=== PATIENT | male | born 1945 | race Caucasian/White ===

== ENCOUNTER → 2018-09-27 08:24 | Outpatient (CLI) | payer MEDICARE, OTHER ==
[2014-12-24 13:37] VITALS: BMI 31.5
[~2018-09-27 08:24] MED LIST: DEXILANT60 MG PO; ELIQUIS2.5 MG PO; ICAPS AREDS1 TAB.SA; ICAPS AREDS1 TAB.SA PO; LAC-HYDRIN 5226 ML TOPICAL; LAC-HYDRIN 5226 ML TP; LIORESAL 10 MG10 MG PO; MULTI-DAY VITAM1 TAB PO; RESTORIL15 MG PO; TESTOSTERON200 MG/ML IM; VIMOVO 500-201 EACH PO; ZOCOR20 MG PO
== END | disposition home or self-care (01) ==
LOC: D.MRI 08:24
DX: M25.562 Pain in left knee (principal)

== ENCOUNTER → 2019-06-04 10:43 | Outpatient (CLI) | payer MEDICARE, OTHER ==
[2014-12-24 13:37] VITALS: BMI 31.5
== END | disposition home or self-care (01) ==
LOC: D.HCCECHO 10:43
PROVIDERS: ATTEND Internal Medicine Cardiovascular Disease
DX: R06.09 Other forms of dyspnea (principal)

== ENCOUNTER → 2020-04-09 14:37 | Outpatient (CLI) | payer MEDICARE, OTHER ==
[2014-12-24 13:37] VITALS: BMI 31.5
[~2020-04-09 14:37] MED LIST changes: +OXYCONTIN10 MG PO; +TRAVATAN Z2.5 ML EACH EYE
== END | disposition home or self-care (01) ==
LOC: D.CT 14:37
PROVIDERS: ATTEND Nurse Practitioner
DX: R06.02 Shortness of breath (principal)

== ENCOUNTER 2020-04-09 15:21 | Inpatient (IN) | payer MEDICARE, OTHER ==
[~2020-04-09] VITALS: Ht 177.8 cm; Wt 104.3 kg
--- NOTE | ~2020-04-09 | HEMODYNAMI ---
PATIENT:JOSE WALTERS MEDICAL RECORD: [id number] : 49 LOCATION:D.MS [id number] ADMISSION DATE: 04/09/20 Generatedon:04/13/202014:21 Patient name: JOSE WALTERS Patient #: [id number] SSN: : 1945 Date of study: 04/13/2020 Page: Of Hemodynamic Procedure Report Patient Data Patient Demographics Procedure consent was obtained First Name: JOSE Gender: Male Last Name: SELENA : 1945 [facility] Initial: Q Age: 74 year(s) Patient #: [id number] Race: Unknown Additional ID: [id number] Contact details Address: [address] [place] [address] [facility] State: [place] City: [place] Zip code: [address] Past Medical History Allergies Allergen Reaction Date Comments Reported Other allergy 04/10/2020 baclifin,tb skin test Other allergy 04/13/2020 baclophin, tb skin test Admission Admission Data Admission Date: 04/09/2020 Admission Time: 19:10 Room #: [id number] Height (in.): 70 BSA: 2.22 (m2) Height (cm.): 177.8 BMI: 33 (kg/m2) Weight (lbs.): 230 Weight (kg.): 104.33 Procedure Procedure Types Cath Procedure Peripheral Cath Diagnostic Procedure Miscellaneous Aspiration/Injection (Joint) Procedure Description Procedure Date Procedure Date: 04/13/2020 Procedure Start Time: 14:12 Procedure Staff Name Function Bernabe Quinonez MD Performing Physician DEANDRE PAK RT Monitor Procedure Data Cath Procedure Fluoroscopy Diagnostic fluoroscopy Total fluoroscopy Time: 0.2 time: 0.2 min min Hemodynamics Rest BSA: 2.22 (m2) O2 Consumption: Estimated: 301.92 (ml/min) O2 Consumption indexed : Estimated:136 (ml/min/m) Pre Cath Intra NCS Post Cath Procedure Log Time Note 13:19:05 SAFE-T PLUS MYELOGRAM TRAY opened to sterile field. 13:19:13 Patient Weight : 230 lbs 13:19:13 Patient Height : 70 inches 14:00:51 DEANDRE VANCE (R) sent for patient. Start room use. 14:00:52 Time tracking: Regular hours (M-F 7:00 - 5:00) 14:01:00 Patient received from Med/Surg to IR Alert and oriented. Tansferred to table in Supine position. 14:01:01 Signed procedure consent form obtained from patient. 14:01:03 Warm blankets applied, and yolie hugger turned on for patient comfort. 14:01:03 Correct patient and procedure confirmed by team. 14:01:05 - 14:01:12 H&P Date Dictated: 04/13/2020 Within 30 days and on chart.. 14:01:14 Pre-procedure instructions explained to patient. 14:01:15 Pre-op teaching completed and patient verbalized understanding. 14:01:17 Family in patients room. 14:01:39 Patient allergic to Other allergybaclophin, tb skin test 14:01:43 Is the patient allergic to Iodine/contrast media? No. 14:01:45 Is patient on blood thinner?Yes 14:01:48 ACC The patient was administered the following blood thiners within the last 24 hours: ACCLovenox 14:01:51 - 14:02:00 Right Knee was prepped with betadine and draped in sterile fashion. 14:08:16 Physician arrived 14:08:16 --------ALL STOP TIME OUT------ 14:08:25 Right knee site verified by team. 14:: Procedure started. 14:09:27 Full Disclosure recording started 14:12:02 Local anesthetic to Right Knee with Lidocaine 1% by Bernabe Quinonez MD.INITIAL ACCESS ONLY 14:12:07 CHIBA 18 X 15 needle opened to sterile field. 14:19:01 Procedure ended.(Physican Out) 14:20:40 Fluoroscopy time 00.20 minutes. 14:20:42 Dose Area Product 2 mGy/cm. 14:20:48 Post procedure instruction explained to patient.Patient verbalizes understanding. 14:20:49 Procedure and supply charges have been captured, reviewed, submitted an d are correct. 14:21:12 Patient transfered to Med/Surg with Bed. Device Usage Item Name Manufacture Quantity Catalog Hospital Part Current Minimal Lot# / Number Charge Number Stock Stock Serial# Code SAFE-T CareFusion 1 [id number] 5 PLUS MYELOGRAM TRAY CHIBA 18 [facility] 1 [id number] 5 X 15 needle Signature Audit [place] Stage Time Signature Unsigned Intra-Procedure 04/13/2020 DEANDRE PAK RT 2:21:23 PM (R) [facility] [address] [place] [address]
--- NOTE | ~2020-04-09 | HEMODYNAMI ---
PATIENT:JOSE WALTERS MEDICAL RECORD: [id number] : [birth year] [id number] ADMISSION DATE: 04/09/20 Generatedon:04/10/202017:11 Patient name: JOSE WALTERS Patient #: [id number] SSN: : Date of study: 04/10/2020 Page: Of Hemodynamic Procedure Report Patient Data Patient Demographics Procedure consent was obtained First Name: JOSE Gender: Male Last Name: SELENA : 1945 [facility] Initial: Q Age: 74 year(s) Patient #: [id number] Race: Unknown Additional ID: [id number] Contact details Address: [address] [place] [address] [facility] State: [place] City: [place] Zip code: [address] Past Medical History Allergies Allergen Reaction Date Comments Reported Other allergy 04/10/2020 baclifin,tb skin test Admission Admission Data Admission Date: 04/09/2020 Admission Time: 19:10 Room #: .[facility] Height (in.): 70 BSA: 2.22 (m2) Height (cm.): 177.8 BMI: 33 (kg/m2) Weight (lbs.): 230 Weight (kg.): 104.33 Procedure Procedure Types Cath Procedure Peripheral Cath Diagnostic Procedure Speech Lang Path Peripheral Procedures Venography Extremity Right Lower Ext. Venagram Procedure Description Procedure Date Procedure Date: 04/10/2020 Procedure Start Time: 15:26 Procedure Staff Name Function Victor Hugo Frias MD Performing Physician Rabia Woodson RT Credit Control Administrator Valentine Jolly RN Nurse Araceli CLAUDIO RN Nurse Xavi Adhikari RT Scrub Procedure Data Cath Procedure Fluoroscopy Diagnostic fluoroscopy Total fluoroscopy Time: 10 time: 10 min min Diagnostic fluoroscopy Total fluoroscopy dose: 812 dose: 812 mGy mGy Contrast Material Contrast Material Type Amount (ml) Isovue 300 130 Diagnostic catheters Device Type Used For End Catheter Placement Merit Impress KA2 5Fr 65CM catheter ([id number]) Procedure Medications Medication Administration Route Dosage Lidocaine 1% added to field 20 Heparin Flush Bag added to field 2 bags (1000units/500ml NS) Benadryl I.V. 50 mg Versed I.V. 1 mg Fentanyl I.V. 50 mcg Versed I.V. 1 mg Fentanyl I.V. 50 mcg Versed I.V. 1 mg Fentanyl I.V. 50 mcg Demerol I.V. 25 mg Vancomycin I.V.P.B 1 g Demerol I.V. 25 mg Hemodynamics Rest BSA: 2.22 (m2) O2 Consumption: Estimated: 281.02 (ml/min) O2 Consumption indexed : Estimated:126.59 (ml/min/m) Heart Rate: 100 (bpm) Snapshots Pre Cath Intra NCS Post Cath Vital Signs Time Heart Resp SPO2 etCO2 NIBP (mmHg) Rhythm Pain Sedation Rate (ipm) (%) (mmHg) Status Level (bpm) 15:12:56 100 26 98 12 140/83(103) NSR 0 (11) 10(A) , No pain 15:17:10 99 29 99 17.3 135/80(104) NSR 0 (11) 10(A) , No pain 15:21:24 93 29 99 22.6 139/83(111) NSR 0 (11) 10(A) , No pain 15:25:36 94 26 99 14.3 143/90(110) NSR 0 (11) 10(A) , No pain 15:29:50 94 24 99 20.3 139/83(111) NSR 0 (11) 9(A) , No pain 15:34:04 95 25 99 22.6 141/90(111) NSR 0 (11) 9(A) , No pain 15:38:18 97 26 99 21 142/93(114) NSR 0 (11) 9(A) , No pain 15:42:31 96 25 99 19.5 142/83(109) NSR 0 (11) 9(A) , No pain 15:46:46 94 24 99 19.5 141/84(112) NSR 0 (11) 9(A) , No pain 15:51:02 93 26 99 21.8 137/79(112) NSR 0 (11) 9(A) , No pain 15:55:16 95 26 99 18.8 141/84(110) NSR 0 (11) 9(A) , No pain 15:59:30 96 27 99 21 137/84(110) NSR 0 (11) 9(A) , No pain 16:03:41 99 25 99 25.6 135/82(108) NSR 0 (11) 9(A) , No pain 16:07:53 96 26 99 24.1 146/88(115) NSR 0 (11) 9(A) , No pain 16:12:07 96 26 99 23.3 148/87(118) NSR 0 (11) 9(A) , No pain 16:16:24 90 25 98 24.8 151/92(122) NSR 0 (11) 9(A) , No pain 16:20:39 88 25 98 25.5 157/93(130) NSR 0 (11) 9(A) , No pain 16:25:00 90 23 98 20.3 161/93(145) NSR 0 (11) 9(A) , No pain 16:29:59 91 24 96 27.8 Measuring NSR 0 (11) 9(A) , No pain 16:30:15 95 24 96 25.5 157/126(144) NSR 0 (11) 9(A) , No pain 16:34:25 100 29 95 26.3 130/111(120) NSR 0 (11) 9(A) , No pain 16:38:18 100 27 94 29.3 109/95(106) NSR 0 (11) 9(A) , No pain 16:43:17 109 29 94 20.3 Measuring NSR 0 (11) 9(A) , No pain 16:44:41 112 28 93 21.8 Time NSR 0 (11) 9(A) Exceeded , No pain 16:49:41 14.3 Measuring NSR 0 (11) 9(A) , No pain 16:51:05 90 12 Time NSR 0 (11) 9(A) Exceeded , No pain 16:52:43 94 9.7 161/99(157) NSR 0 (11) 9(A) , No pain 16:57:05 97 13.5 179/107(145) NSR 0 (11) 9(A) , No pain 17:01:31 99 1.5 163/97(127) NSR 0 (11) 9(A) , No pain 17:05:51 97 18.8 159/102(130) NSR 0 (11) 9(A) , No pain 17:09:51 9 Aborted NSR 0 (11) 9(A) , No pain Medications Time Medication Route Dose Verified Delivered Reason Notes Eff ectiveness by by 15:27:52 Lidocaine 1% added 20ml Victor Hugo Gay for local to vial Altagracia Frias anesthetic field MD FIGUEROA 15:28:04 Heparin Flush added 2 Victor Hugo Gay used for Bag to bags Altagracia Frias procedure (1000units/500ml field MD FIGUEROA NS) 15:28:21 Benadryl I.V. 50 mg Victor Hugo Grijalva Per Altagracia Jolly RN physician 15:44:49 Versed I.V. 1 mg Victor Hugo Grijalva for Altagracia Jolly RN sedation 15:45:02 Fentanyl I.V. 50 Victor Hugo Grijalva for [facility] Altagracia Jolly RN sedation 15:55:39 Versed I.V. 1 mg Victor Hugo Grijalva for Altagracia Jolly RN sedation 15:55:46 Fentanyl I.V. 50 Victor Hugo Holmody for [facility] Altagracia Jolly RN sedation 16:12:14 Versed I.V. 1 mg Victor Hugo Grijalva for Altagracia Jolly RN sedation 16:12:23 Fentanyl I.V. 50 Victor Hugo Grijalva for [facility] Altagracia Jolly RN sedation 16:33:01 Demerol I.V. 25 mg Victor Hugo Grijalva Per Altagracia Jolly RN physician 16:51:18 Vancomycin I.V.P.B 1 g Victor Hugo Grijalva Per Altagracia Jolly RN physician 16:56:23 Demerol I.V. 25 mg Victor Hugo Grijalva Per Altagracia Jolly RN physician Procedure Log Time Note 14:37:33 Patient Height : 70 inches 14:37:36 Patient Weight : 230 lbs 14:39:28 Use device set IR Diagnostic 14:40:40 BENTSON 145cm wire ([id number]) opened to sterile field. 14:40:41 Micropuncture VSI 4FR kit opened to sterile field. 14:40:42 Sheath 8fr. [place] 10cm opened to sterile field. 14:40:43 Tegaderm 4 x 4 (1626W) opened to sterile field. 14:40:44 Sterile Angiographic Pack opened to sterile field. 14:40:47 Bag Decanter (2002S) opened to sterile field. 14:52:21 Time tracking: Regular hours (M-F 7:00 - 5:00) 15:09:55 Plan of Care:Hemodynamics will remain stable., Cardiac rhythm will remain stable., Comfort level will be maintained., Respiratory function will remain adequate., Patient/ family verbilizes understanding of procedure., Procedure tolerated without complication., Recovers from procedure without complications.. 15:10:08 Patient received from Med/Surg to IR Alert and oriented. Tansferred to table in Prone position. 15:10:11 Signed procedure consent form obtained from patient. 15:10:17 H&P Date Dictated: 04/10/2020 Within 30 days and on chart.. 15:10:19 Pre-procedure instructions explained to patient. 15:10:20 Pre-op teaching completed and patient verbalized understanding. 15:10:22 Family unavailable. 15:10:25 Patient NPO since Midnight. 15:11:00 Patient allergic to Other allergybaclifin,tb skin test 15:11:05 Is the patient allergic to Iodine/contrast media? No. 15:11:13 Is patient on blood thinner?Yes 15:11:16 Patient diabetic? No. 15:11:19 - 15:11:22 ----Pre-sedation anethsthesia assessment.---- 15:11:26 Previous problem with sedation/anesthesia? No ? 15:11:28 Snore? Yes 15:11:31 Sleep apnea? Yes 15:11:33 Deviated septum? No 15:11:36 Opens mouth fully? Yes 15:11:39 Sticks out tongue? Yes 15:11:43 Airway obstruction? No ? 15:11:46 Dentures? No ? 15:11:49 - 15:11:52 ECG and BP/O2 sat monitors applied to patient. 15:11:53 Vital chart was started 15:11:55 Baseline sample Acquired. 15:11:58 Full Disclosure recording started 15:11:59 - 15:12:26 Popliteal region area was prepped with chlora-prep and draped in steril e fashion 15:12:29 - 15:12:43 2) 60-89 Mildly reduced kidney function, and other findings (as for stage 1) point to kidney disease. 15:12:49 Fire Safety Assessment: A--An alcohol-based skin anteseptic being used preoperatively., C--Open oxygen or nitrous oxide is being used. 15:13:09 A Saberr KA2 5Fr 65CM catheter ([id number]) was advanced over the wire and used for . 15:25:14 Physician arrived 15:25:14 --------ALL STOP TIME OUT------ 15:25:15 Final Timeout: patient, procedure, and site verified with staff and physician. All members of the team are in agreement. 15:26:06 Procedure started. 15:26:18 Local anesthetic to right popliteal vein with Lidocaine 1% by Victor Hugo Frias MD.INITIAL ACCESS ONLY 15:27:52 Lidocaine 1% 20ml vial added to field was administered by Victor Hugo craven MD; for local anesthetic; Verbal order read back and verified. 15:28:04 Heparin Flush Bag (1000units/500ml NS) 2 bags added to field was administered by Victor Hugo Frias MD; used for procedure; Verbal order read back and verified. 15:28:21 Benadryl 50 mg I.V. was administered by Valentine Jolly RN; Per physician ; Verbal order read back and verified. 15:44:49 Versed 1 mg I.V. was administered by Valentine Jolly RN; for sedation; Verbal order read back and verified. 15:45:02 Fentanyl 50 mcg I.V. was administered by Valentine Jolly RN; for sedation ; Verbal order read back and verified. 15:49:35 ROADRUNNER .035 145 glide wire ([id number]) opened to sterile field. 15:55:39 Versed 1 mg I.V. was administered by Valentine Jolly RN; for sedation; Verbal order read back and verified. 15:55:46 Fentanyl 50 mcg I.V. was administered by Valentine Jolly RN; for sedation ; Verbal order read back and verified. 15:55:56 Cordis 5Fr BRITE TIP 11cm sheath opened to sterile field. 15:56:04 BENTSON 145cm wire ([id number]) opened to sterile field. 16:11:52 Zelante 8Fr Angiojet catheter opened to sterile field. 16:12:11 AMPLATZ Super stiff Straight 260cm wire ([id number]) opened to sterile field. 16:12:14 Versed 1 mg I.V. was administered by Valentine Jolly RN; for sedation; Verbal order read back and verified. 16:12:23 Fentanyl 50 mcg I.V. was administered by Valentine Jolly RN; for sedation ; Verbal order read back and verified. 16:24:13 INFLATOR BasixTOUCH (GX3683) opened to sterile field. 16:30:59 Inflate balloon Inflation number: 1 A Evercross 12 x 40 x 135 ([id number]) was prepped and advanced across the Undefined1 , then inflated . 16:33:01 Demerol 25 mg I.V. was administered by Valentine Jolly RN; Per physician; Verbal order read back and verified. 16:38:35 MYNX SUPERVISOR LIVESTOCK YARD 6FR/7FR ([id number]) opened to sterile field. 16:51:18 Vancomycin 1 g I.V.P.B was administered by Valentine Jolly RN; Per physician; Verbal order read back and verified. 16:54:46 Procedure ended.(Physican Out) 16:55:23 Fluoroscopy time 10.00 minutes. 16:55:34 Fluoroscopy dose: 812 mGy 16:55:34 Flurop Dose total: 812 16:55:51 Contrast amount:Isovue 300 130ml. 16:56:23 Demerol 25 mg I.V. was administered by Valentine Jolly RN; Per physician; Verbal order read back and verified. 16:58:51 Procedure and supply charges have been captured, reviewed, submitted an d are correct. 16:58:57 Report given to Med/Surg. 17:11:44 Vital chart was stopped Intervention Summary Intervention Notes Time ActionType Lesion and Equipment Used Action# Pressure Duration Attributes 16:30:59 Inflate Undefined1 Evercross 12 x 1 0 00:00 balloon 40 x 135 ([id number]) Device Usage Item Name Manufacture Quantity Catalog Hospital Part Current Min imal Lot# / Number Charge Number Stock Stock Serial# Code BENTDAVID 145cm Cook [employer] 2 [id number] 168182 5 wire ([id number]) Micropuncture VSI VASCULAR 1 7266V 778214 358958 5 VSI 4FR kit SOLUTIONS Sheath 8fr. Terumo 1 CDR102 639485 3946010 5 [place] 10cm Tegaderm 4 x 4 3M 1 1626W 096250 600149 300873 5 (1626W) Sterile Cardinal 1 [id number] 733919 477905 5 Angiographic Health Pack Bag Decanter Microtek 1 2001S 032029 56781 991048 5 (2001S) Medical Inc. Merit Impress Merit 1 [id number] 194088 922632 5 KA2 5Fr 65CM Medical catheter (61168XV2) ROADRUNNER .035 [employer] 1 Z37564 293327 410832 691657 5 [id number] 145 glide wire (U65971) Cordis 5Fr Cardinal 1 [id number] 666422 315343 5 BRITE TIP 11cm Health sheath Zelante 8Fr [place] 1 165445-120 989238 382253 701788 5 Angiojet Scientific catheter AMPLATZ Super [place] 1 [id number] 764103 41096 453506 5 stiff Straight Scientific 260cm wire ([id number]) INFLATOR Merit 1 SQ9692 040886 438196 968658 5 Mercari ([id number]) Evercross 12 x Medtronic 1 [id number] 264119 406193 928183 5 40 x 135 ([id number]) MYNX SUPERVISOR LIVESTOCK YARD Access 1 [id number] 850263 430107 5 [id number] 6FR/7FR Closure (EZ0297) Signature Audit [place] Stage Time Signature Unsigned Intra-Procedure 04/10/2020 Rabia Woodson 5:11:40 PM RT(R) [facility] [address] [place] [address]
[~2020-04-09 15:21] MED LIST changes: -OXYCONTIN10 MG PO; -TRAVATAN Z2.5 ML EACH EYE
[2020-04-09] MEDS ORDERED: OXYCONTIN10 MG PO (15:30)
[2020-04-09 15:59] LABS: BASOPHILS 0.2 % (0-2); EOSINOPHILS 0.3 % (0-7); HEMATOCRIT 44.4 % (42.0-54.0); HEMOGLOBIN 14.7 g/dL (13.5-17.5); IMMATURE GRANULOCYTES 0.4 % (0-5); LYMPHOCYTES 9.9 % (15-50); MCH 33.3 pg (26.0-34.0); MCHC 33.1 g/dL (31.0-37.0); MCV 100.7 fL (80.0-100.0); MEAN PLATELET VOLUME 10.2 fL (7.4-10.4); MONOCYTES 11.6 % (2-11); NEUTROPHILS 77.6 % (40-80); RBC 4.41 10x6/uL (4.20-6.10); RDW 12.8 % (11.5-14.5); WBC 10.7 10x3/uL (4.8-10.8)
[2020-04-09 16:00] VITALS: BP 129/86
[2020-04-09 16:00] LABS: PLATELET COUNT 194 10x3/uL (130-400)
[2020-04-09 16:09] LABS: CALC OSMOLALITY 271 mosm/kg (275-300); CALCIUM 9.1 mg/dL (8.5-10.1); CARBON DIOXIDE 24.1 mmol/L (21.0-32.0); CHLORIDE - SERUM 94 mmol/L (98-107); CREATININE - SERUM 1.5 mg/dL (0.6-1.3); POTASSIUM - SERUM 4.3 mmol/L (3.5-5.1); SODIUM 129 mmol/L (136-145); UREA NITROGEN 27 mg/dL (7-18); eGFR NON AFRICAN AMERICAN 49 mL/min (90-120)
[2020-04-09 16:13] LABS: GLUCOSE 251 mg/dL (74-106); INR 1.37 (0.85-1.17); PROTIME 16.8 SECONDS (11.6-15.0)
[2020-04-09 16:14] LABS: APTT 42.2 SECONDS (22.8-39.4)
[2020-04-09 16:18] LABS: ALBUMIN 3.4 g/dL (3.4-5.0); ALKALINE PHOSPHATASE 130 U/L (30-120); ALT (SGPT) 25 U/L (10-68); BILIRUBIN - TOTAL 0.91 mg/dL (0.2-1.3); PROTEIN - SERUM 7.9 g/dL (6.4-8.2); TROPONIN-I < 0.017 ng/mL (0.000-0.060)
[2020-04-09 16:30] VITALS: BP 129/86
[2020-04-09 17:00] VITALS: BP 120/81
[2020-04-09 18:00] VITALS: BP 127/78
[2020-04-09 21:39] VITALS: BP 121/75; BMI 33.0
[2020-04-10] VITALS (11 sets, daily range): BP systolic 119–154; BP diastolic 67–91
--- NOTE | 2020-04-10 00:27 | NUR ---
SCD'S NOT APPLIED DUE TO DVT OF RLE, AND EXTENSIVE EP.
[2020-04-10 05:13] LABS: BILIRUBIN NEGATIVE (NEGATIVE); GLUCOSE 50 mg/dL (NEGATIVE); KETONE NEGATIVE (NEGATIVE); NITRITE NEGATIVE (NEGATIVE); UROBILINOGEN NORMAL (NORMAL)
[2020-04-10 05:14] LABS: BACTERIA FEW /hpf (NEGATIVE); EPITHELIAL CELLS 0-5 /hpf (0-5); RED CELLS - URINE 0-5 /hpf (0-5); WHITE CELLS - URINE 0-5 /hpf (NEGATIVE)
[2020-04-10 05:57] LABS: BASOPHILS 0.3 % (0-2); EOSINOPHILS 2.5 % (0-7); HEMATOCRIT 38.9 % (42.0-54.0); HEMOGLOBIN 12.7 g/dL (13.5-17.5); IMMATURE GRANULOCYTES 0.5 % (0-5); MCH 32.7 pg (26.0-34.0); MCHC 32.6 g/dL (31.0-37.0); MCV 100.3 fL (80.0-100.0); MEAN PLATELET VOLUME 10.2 fL (7.4-10.4); MONOCYTES 11.7 % (2-11); PLATELET COUNT 200 10x3/uL (130-400); RBC 3.88 10x6/uL (4.20-6.10); RDW 12.9 % (11.5-14.5)
[2020-04-10 06:50] LABS: ALBUMIN 2.8 g/dL (3.4-5.0); ALKALINE PHOSPHATASE 101 U/L (30-120); ALT (SGPT) 24 U/L (10-68); BILIRUBIN - TOTAL 0.85 mg/dL (0.2-1.3); CALCIUM 8.6 mg/dL (8.5-10.1); CHLORIDE - SERUM 100 mmol/L (98-107); POTASSIUM - SERUM 3.8 mmol/L (3.5-5.1); PROTEIN - SERUM 6.5 g/dL (6.4-8.2); SODIUM 136 mmol/L (136-145); UREA NITROGEN 23 mg/dL (7-18); eGFR NON AFRICAN AMERICAN 88 mL/min (90-120)
--- NOTE | 2020-04-10 06:50 | NUR ---
A&O RESTING IN BED WITH EYES OPEN. NO C/O PAIN. NO S/S OF ACUTE DISTRESS NOTED. BEDREST D/T DVT TO RLE. SWELLING AND REDNESS PRESENT. EXCORIATION TO GROIN AREA, SKIN PROTECTANT APPLIED. ON 2L O2, NC. IV TO RIGHT AC, NS INFUSING @ 100ML/HR. SITE PATENT WITHOUT REDNESS OR SWELLING. ON TELEMETRY 90 SR. DENIES ANY NEEDS AT THIS TIME. CALL LIGHT IN REACH. WILL CONTINUE TO MONITOR.
[2020-04-10 06:51] LABS: CALC OSMOLALITY 280 mosm/kg (275-300); CREATININE - SERUM 0.9 mg/dL (0.6-1.3); GLUCOSE 181 mg/dL (74-106)
--- NOTE | 2020-04-10 09:30 | NUR ---
PATIENT NPO D/T PROCEDURE SCHEDULED TODAY. CONSENT SIGNED AND IN CHART. CLIPPED GROIN AREA.
[2020-04-10 09:33] LABS: APTT 37.9 SECONDS (22.8-39.4); INR 1.13 (0.85-1.17); PROTIME 14.5 SECONDS (11.6-15.0)
[2020-04-10] MEDS ORDERED: TRAVATAN Z2.5 ML EACH EYE (11:53)
--- NOTE | 2020-04-10 11:57 | NUR ---
OT NOTE: HOLD UNTIL TOMMOROW SECONDARY TO ACUTE PE AND DVT CRISTIN GAMA, OTR/L
--- NOTE | 2020-04-10 15:16 | NUR ---
I have reviewed this patient and I concur with the Shift Assessment completed by the Licensed Practical Nurse today this shift.
--- NOTE | 2020-04-10 20:00 | NUR ---
AWAKE,ALERT,NO COMPLAINTS VOICED. RESP EVEN AND UNALBORED. NO DISTRESS NOTED.O2 @ 2L PER NC ON. IV TO RAC INTACT WIHTOUT REDNESS OR EDEMA STERI STRIP INTACT TO RIGHT KNEE.DRESSING TO RIGHT POSTERIOR KNEE INTACT WITH DRIED BLOOD NOTED. DENIES DISCOMFORT. CL IN REACH
[2020-04-11] VITALS: BP 112/57
[2020-04-11 04:00] VITALS: BP 129/69
--- NOTE | 2020-04-11 04:39 | NUR ---
I have reviewed this patient and I concur with the Shift Assessment completed by the Licensed Practical Nurse today this shift.
--- NOTE | 2020-04-11 07:05 | NUR ---
A&O RESTING IN BED WITH EYES OPEN. NO C/O PAIN. NO S/S OF ACUTE DISTRESS NOTED. POD #1 RIGHT VENOGRAM, DRESSING TO RIGHT POPLITEAL C/D/I. SCDS ON. BLOODY URINE. BEDREST. ON 2L O2, NC. IV TO RIGHT AC, NS INFUSING @ 100ML/HR. SITE PATENT WITHOUT REDNESS OR SWELLING. ON TELEMETRY SR 90. DENIES ANY NEEDS AT THIS TIME. CALL LIGHT IN REACH. WILL CONTINUE TO MONITOR.
[2020-04-11 07:31] LABS: BASOPHILS 0.3 % (0-2); EOSINOPHILS 3.8 % (0-7); HEMATOCRIT 35.8 % (42.0-54.0); HEMOGLOBIN 11.8 g/dL (13.5-17.5); IMMATURE GRANULOCYTES 0.3 % (0-5); MCH 33.2 pg (26.0-34.0); MCV 100.8 fL (80.0-100.0); MONOCYTES 14.5 % (2-11); NEUTROPHILS 61.1 % (40-80); PLATELET COUNT 188 10x3/uL (130-400); RBC 3.55 10x6/uL (4.20-6.10); RDW 12.8 % (11.5-14.5); WBC 7.6 10x3/uL (4.8-10.8)
[2020-04-11 07:50] LABS: ALBUMIN 2.4 g/dL (3.4-5.0); ALKALINE PHOSPHATASE 94 U/L (30-120); ALT (SGPT) 24 U/L (10-68); BILIRUBIN - TOTAL 1.16 mg/dL (0.2-1.3); CALCIUM 7.6 mg/dL (8.5-10.1); CARBON DIOXIDE 26.8 mmol/L (21.0-32.0); CHLORIDE - SERUM 104 mmol/L (98-107); GLUCOSE 169 mg/dL (74-106); MAGNESIUM - SERUM 1.8 mg/dL (1.8-2.4); POTASSIUM - SERUM 3.3 mmol/L (3.5-5.1); PROTEIN - SERUM 5.6 g/dL (6.4-8.2); SODIUM 139 mmol/L (136-145); eGFR NON AFRICAN AMERICAN 78 mL/min (90-120)
[2020-04-11 07:51] LABS: CALC OSMOLALITY 282 mosm/kg (275-300); UREA NITROGEN 16 mg/dL (7-18)
--- NOTE | 2020-04-11 08:00 | NUR ---
SLEPPING WITHOUT SIGNS OF DISTRESS.CALL LIGHT IN REACH
[2020-04-11 09:49] VITALS: BP 134/63
[2020-04-11 12:19] LABS: % SATURATION 25 % (15-55); IRON 62 ug/dl (35-150); TOTAL IRON BIND CAPACITY 247 ug/dl (260-445); UNSAT IRON BIND CAPACITY 185 ug/dl (150-375)
[2020-04-11 13:58] VITALS: BP 116/60
[2020-04-11 18:04] VITALS: BP 104/57
--- NOTE | 2020-04-11 19:10 | NUR ---
WEARING CPAP WHEN ENTERING THE ROOM. PATIENT ALERT AND ORIENTED. ASSESSMENT COMPLETE PER ORDER. PATIENT HAS RIGHT AC IV THAT IS PATENT AND INFUSING NS PER ORDER. PATIENT HAS INCENTIVE SPIROMETER AT BEDSIDE PER ORDER. PATIENT PROVIDES DEMONSTRATION AND DOES SO CORRECTLY. DENIES PAIN AT THIS TIME. ASSISTED PATIENT WITH BED HANSEN. HAD LARGE BOWEL MOVEMENT. PROVIDED WITH GERMEX AND TISSUES PER REQUEST. K PAD IN PLACE PER ORDER. DENIES FURTHER NEEDS AT THIS TIME. CPOC.
[2020-04-11 20:58] VITALS: BP 113/56
[2020-04-12 00:44] VITALS: BP 124/54
[2020-04-12 04:12] VITALS: BP 127/63
--- NOTE | 2020-04-12 06:18 | NUR ---
WAITING FOR VANC TROUGH RESULTS BEFORE ADMINISTRATION
[2020-04-12 06:50] LABS: BASOPHILS 0.3 % (0-2); EOSINOPHILS 6.1 % (0-7); HEMOGLOBIN 11.1 g/dL (13.5-17.5); IMMATURE GRANULOCYTES 0.7 % (0-5); LYMPHOCYTES 28.8 % (15-50); MCH 32.6 pg (26.0-34.0); MCHC 32.6 g/dL (31.0-37.0); MEAN PLATELET VOLUME 9.9 fL (7.4-10.4); MONOCYTES 10.1 % (2-11); PLATELET COUNT 196 10x3/uL (130-400); RDW 12.8 % (11.5-14.5); WBC 5.7 10x3/uL (4.8-10.8)
--- NOTE | 2020-04-12 07:10 | NUR ---
RECEIVED REPORT, ASSUMED CARE, A&O, KPAD TO RLE, 2+ PITTING EDEMA RLE, CALL LIGHT IN REACH, URINAL AT BEDSIDE, DENIES NEEDS, BREATHING SHALLOW, WILL CONTINUE POC
[2020-04-12 07:11] LABS: ALBUMIN 2.2 g/dL (3.4-5.0); ALKALINE PHOSPHATASE 109 U/L (30-120); ALT (SGPT) 24 U/L (10-68); BILIRUBIN - TOTAL 0.44 mg/dL (0.2-1.3); CALC OSMOLALITY 279 mosm/kg (275-300); CALCIUM 7.6 mg/dL (8.5-10.1); CHLORIDE - SERUM 105 mmol/L (98-107); GLUCOSE 166 mg/dL (74-106); MAGNESIUM - SERUM 1.9 mg/dL (1.8-2.4); POTASSIUM - SERUM 3.2 mmol/L (3.5-5.1); PROTEIN - SERUM 5.6 g/dL (6.4-8.2); SODIUM 138 mmol/L (136-145); UREA NITROGEN 12 mg/dL (7-18); VANCOMYCIN - TROUGH 9.2 ug/mL (10.0-20.0); eGFR NON AFRICAN AMERICAN 78 mL/min (90-120)
[2020-04-12 08:43] VITALS: BP 99/67
[2020-04-12 13:17] VITALS: BP 127/65
[2020-04-12 18:52] VITALS: BP 140/71
--- NOTE | 2020-04-12 19:54 | NUR ---
I have reviewed this patient and I concur with the Shift Assessment completed by the Licensed Practical Nurse today this shift.
[2020-04-13 03:55] VITALS: BP 124/75
--- NOTE | 2020-04-13 04:00 | NUR ---
I have reviewed this patient and I concur with the Shift Assessment completed by the Licensed Practical Nurse today this shift.
[2020-04-13 06:02] LABS: BASOPHILS 0.3 % (0-2); EOSINOPHILS 9.7 % (0-7); HEMOGLOBIN 11.5 g/dL (13.5-17.5); IMMATURE GRANULOCYTES 0.8 % (0-5); LYMPHOCYTES 26.1 % (15-50); MCHC 32.9 g/dL (31.0-37.0); MCV 100.3 fL (80.0-100.0); MEAN PLATELET VOLUME 9.6 fL (7.4-10.4); NEUTROPHILS 53.1 % (40-80); PLATELET COUNT 213 10x3/uL (130-400); RBC 3.49 10x6/uL (4.20-6.10); RDW 12.9 % (11.5-14.5); WBC 5.9 10x3/uL (4.8-10.8)
[2020-04-13 06:44] LABS: ALBUMIN 2.4 g/dL (3.4-5.0); ALKALINE PHOSPHATASE 116 U/L (30-120); BILIRUBIN - TOTAL 0.38 mg/dL (0.2-1.3); CALC OSMOLALITY 284 mosm/kg (275-300); CALCIUM 8.3 mg/dL (8.5-10.1); CHLORIDE - SERUM 107 mmol/L (98-107); CREATININE - SERUM 0.9 mg/dL (0.6-1.3); GLUCOSE 162 mg/dL (74-106); MAGNESIUM - SERUM 2.1 mg/dL (1.8-2.4); POTASSIUM - SERUM 3.5 mmol/L (3.5-5.1); PROTEIN - SERUM 5.8 g/dL (6.4-8.2); SODIUM 141 mmol/L (136-145); UREA NITROGEN 12 mg/dL (7-18); eGFR NON AFRICAN AMERICAN 88 mL/min (90-120)
[2020-04-13 06:45] LABS: ALT (SGPT) 33 U/L (10-68)
--- NOTE | 2020-04-13 07:39 | NUR ---
RECEIVED REPORT, ASSUMED CARE, A&O, DENIES NEEDS, KPAD ON RIGHT KNEE, 2+ PITTING EDEMA NOTED TO RLE, CALL LIGHT IN REACH, BED LOWEST POSITTION, BANDAGE CDI TO BACK OF RIGHT KNEE, WILL CONTINUE POC
[2020-04-13 08:56] LABS: ERYTHROCYTE SEDIMENTATION RATE 35 mm/hr (0-20)
[2020-04-13 09:10] VITALS: BP 125/72
[2020-04-13 11:54] VITALS: BP 136/76
--- NOTE | 2020-04-13 14:33 | NUR ---
RETURNED FROM SURG. HAD LOCAL NO GENERAL ANESTHESIA. STERI STRIPS IN PLACE. PAIM LEVEL 12/12. CALL LIGHT IN REACH
[2020-04-13 16:07] VITALS: Ht 177.8 cm; Wt 104.3 kg
[2020-04-13 16:22] VITALS: BP 125/73
[2020-04-13 16:25] LABS: PROTEIN - BODY FLUID 3.4 G/DL
--- NOTE | 2020-04-13 16:35 | MORECARE ---
CASE MANAGEMENT DISCHARGE SUMMARY PATIENT: JOSE WALTERS UNIT: [id number] ADM DATE: 04/09/20 AGE: 74 : [birth year] SEX: M ROOM/BED: D.2232 AUTHOR: SAMDOC PHYSICIAN: REFERRING PHYSICIAN: DAYANA ZAIDI MD DATE OF SERVICE: 04/13/20 Discharge Plan Patient Name: JOSE WALTERS Facility: [facility]:[place] : 1945 Planned Disposition: Anticipated Discharge Date: Discharge Date: Expected LOS: Initial Reviewer: [email or web address] Initial Review Date: 04/13/2020 Generated: 04/13/20 5:35 pm Comments DCP- Discharge Planning Updated by [email or web address]: Pat Serna on 04/13/20 3:[address] Patient Name: JOSE WALTERS Admission Status: ER Accout number: [id number] Admission Date: 04-09-2020 : 1945 Admission Diagnosis: Attending: REINA Current LOS: 4 Anticipated DC Date: Planned Disposition: Primary Insurance: MEDICARE A & B Discharge Planning Comments: CM met with patient at bedside after explaining CM role and obtaining verbal consent. CM discussed availability / needs of home health, REHAB and medical equipment. PATIENT DENIES ANY DISCHARGE NEEDS AT THIS TIME. HAS BEEN GOING TO OUTPATIENT PT AT [facility]. IMM SIGNED AND THIAGO SIGNED FOR [facility] AND HH IF NEEDED. CM TO FOLLOW NEEDED. Sewer Pipe Layer: Pat Serna DCPIA - Discharge Planning Initial Assessment Updated by [email or web address]: Pat Serna on 04/13/20 4:30 pm * Is the patient Alert and Oriented? Yes * PCP [facility] * Pharmacy [facility] * Preadmission Environment Home with Family * Other Equipment CPAP, WALKER * Community resources currently utilized None * Can the patient safely return to the preadmission environment? Yes * Has this patient been hospitalized within the prior 30 days at any hospital? No Coverage Notice Reviewer: [email or web address] - Pat Serna Notice Issued Date-Time: 04/13/2020 16:31 Notice Type: IM Discharge Notice Notice Delivered To: Relationship to Patient: Study Abroad Advisor Name: Delivery Method: - Karyn Days: Prior Verbal Notification: Recipient Understood Notice: Recipient Signature: Med Rec Note Co-signed by Attending: Coverage Notice Comment: Reviewer: [email or web address] Luis Manuel Pattrupti Serna Notice Issued Date-Time: 04/13/2020 16:31 Notice Type: Patient Choice Letter Notice Delivered To: Patient Relationship to Patient: Study Abroad Advisor Name: Delivery Method: HAND - Hand Delivered Karyn Days: Prior Verbal Notification: Recipient Understood Notice: Yes Recipient Signature: Yes Med Rec Note Co-signed by Attending: Coverage Notice Comment: DEIRDRE SANCHEZ OF CARE IV OR [facility] IF NEEDED. Patient Name: JOSE WALTERS Page [id number] at 1635 All edits/amendments must be made on the electronic document DICTATION DATE: 04/13/20 1635 CORK INSULATION INSTALLER: FRANCOIS 04/13/20 1635 RPT#: [id number] DC DATE: STATUS: ADM IN [facility] [address] [place] [address] END OF REPORT
[2020-04-13 18:11] LABS: MACROPHAGES BF 8 %; NEUT - BF 85 %
--- NOTE | 2020-04-13 18:35 | NUR ---
I have reviewed this patient and I concur with the Shift Assessment completed by the Licensed Practical Nurse today this shift.
[2020-04-13 20:00] VITALS: BP 110/71
[2020-04-14] VITALS: BP 127/71
[2020-04-14 04:00] VITALS: BP 125/70
[2020-04-14 04:54] LABS: BASOPHILS 0.5 % (0-2); EOSINOPHILS 9.6 % (0-7); HEMATOCRIT 35.6 % (42.0-54.0); HEMOGLOBIN 11.6 g/dL (13.5-17.5); LYMPHOCYTES 23.5 % (15-50); MCH 32.6 pg (26.0-34.0); MCHC 32.6 g/dL (31.0-37.0); MEAN PLATELET VOLUME 9.6 fL (7.4-10.4); MONOCYTES 8.6 % (2-11); NEUTROPHILS 56.8 % (40-80); PLATELET COUNT 250 10x3/uL (130-400); RBC 3.56 10x6/uL (4.20-6.10); RDW 12.7 % (11.5-14.5); WBC 6.2 10x3/uL (4.8-10.8)
[2020-04-14 05:11] LABS: ALBUMIN 2.3 g/dL (3.4-5.0); ALKALINE PHOSPHATASE 118 U/L (30-120); ALT (SGPT) 31 U/L (10-68); BILIRUBIN - TOTAL 0.38 mg/dL (0.2-1.3); CALC OSMOLALITY 275 mosm/kg (275-300); CALCIUM 8.1 mg/dL (8.5-10.1); CARBON DIOXIDE 28.6 mmol/L (21.0-32.0); CHLORIDE - SERUM 103 mmol/L (98-107); GLUCOSE 151 mg/dL (74-106); MAGNESIUM - SERUM 1.7 mg/dL (1.8-2.4); POTASSIUM - SERUM 3.5 mmol/L (3.5-5.1); PROTEIN - SERUM 5.9 g/dL (6.4-8.2); SODIUM 137 mmol/L (136-145); UREA NITROGEN 11 mg/dL (7-18); eGFR NON AFRICAN AMERICAN 78 mL/min (90-120)
--- NOTE | 2020-04-14 07:43 | NUR ---
ALERT AND ORIENTED. LUNGS CLEAR BILATERALLY. HEART SOUNDS S1 AND S2 HEARD IN ALL GREGG. BOWEL SOUNDS ACTIVE X 4. IV TO RIGHT AC PATENT WITHOUT REDNESS. DENIES NEEDS. BED LOW. CALL LIGHT AND PERSONAL ITEMS IN REACH. WILL CONTINUE TO MONITOR.
[2020-04-14 09:17] VITALS: BP 131/74
[2020-04-14 13:11] LABS: ACLA - IGG AB <9 GPL U/mL (0-14); ACLA - IGM AB <9 MPL U/mL (0-12)
[2020-04-14 14:34] VITALS: BP 119/70
[2020-04-14 17:56] VITALS: BP 118/64
[2020-04-14 20:00] VITALS: BP 138/78
--- NOTE | 2020-04-15 03:15 | NUR ---
ENTERED ROOM IN RESPONSE TO CL. PT SUPINE IN BED, HOME CPAP IN USE. REPORTS PAIN OF 6/10 TO RLE. WATER ADDED TO KPAD. NO FURTHER NEEDS VOICED, CTM.
[2020-04-15 04:00] VITALS: BP 122/77
--- NOTE | 2020-04-15 05:35 | NUR ---
I have reviewed this patient and I concur with the Shift Assessment completed by the Licensed Practical Nurse today this shift.
[2020-04-15 05:53] LABS: BASOPHILS 0.4 % (0-2); EOSINOPHILS 7.8 % (0-7); HEMATOCRIT 34.5 % (42.0-54.0); HEMOGLOBIN 11.4 g/dL (13.5-17.5); IMMATURE GRANULOCYTES 1.7 % (0-5); LYMPHOCYTES 27.2 % (15-50); MCH 33.1 pg (26.0-34.0); MCV 100.3 fL (80.0-100.0); MEAN PLATELET VOLUME 9.8 fL (7.4-10.4); MONOCYTES 9.3 % (2-11); NEUTROPHILS 53.6 % (40-80); PLATELET COUNT 267 10x3/uL (130-400); RBC 3.44 10x6/uL (4.20-6.10); WBC 7.1 10x3/uL (4.8-10.8)
[2020-04-15 06:37] LABS: CALC OSMOLALITY 285 mosm/kg (275-300); CALCIUM 8.4 mg/dL (8.5-10.1); CARBON DIOXIDE 26.2 mmol/L (21.0-32.0); CHLORIDE - SERUM 105 mmol/L (98-107); GLUCOSE 155 mg/dL (74-106); POTASSIUM - SERUM 3.9 mmol/L (3.5-5.1); SODIUM 142 mmol/L (136-145); UREA NITROGEN 12 mg/dL (7-18); eGFR NON AFRICAN AMERICAN 78 mL/min (90-120)
--- NOTE | 2020-04-15 08:38 | NUR ---
GAVE PT MEDS WITHOUT DIFFICULTY, PT DENIES NEEDS, GAVE PT PERCOCET FOR KNEE PAIN, RATES PAIN 4/10, O2 AT 2L IN USE, URINAL AT BEDSIDE, RIGHT LEG RED AND SWOLLEN, STERI STRIPS SECURE, NO DRAINAGE NOTED, K PAD IN USE, SR UP X2, CALL LIGHT IN REACH, WILL MONITOR, BED LOW AND LOCKED
[2020-04-15 09:01] VITALS: BP 126/69
--- NOTE | 2020-04-15 11:14 | NUR ---
Rehab Prescreening Consult recieved and the chart has been reviewed. He is a good ARU candidate when he is medically stable and able to participate in the 3 hours of therapy every day 5 days a week. Discussed in the IDT meeting. Jannette Fernando RN Clinical Liaison, Rehab
--- NOTE | 2020-04-15 13:09 | NUR ---
GAVE PT PERCOCET FOR PAIN, RATES PAIN 4, PT JUST FINISHED WITH PT, PT STATES IT WAS EASIER AFTER PAIN MEDS,
[2020-04-15 13:36] VITALS: BP 143/74
[2020-04-15 18:41] VITALS: BP 136/72
[2020-04-15 22:20] VITALS: BP 158/87
--- NOTE | 2020-04-15 23:00 | NUR ---
A&0 X 4. PLACED ON BEDPAN. STOOL MORE SOLID THAN BM THE PREVIOUS NIGHT, SOFT. NO FURTHER NEEDS VOICED, CTM.
[2020-04-16 03:08] LABS: PROTEIN S - FREE 141 % (57-157); PROTEIN S - TOTAL 122 % (60-150)
--- NOTE | 2020-04-16 03:55 | NUR ---
I have reviewed this patient and I concur with the Shift Assessment completed by the Licensed Practical Nurse today this shift.
[2020-04-16 06:11] LABS: PROTEIN C - ANTIGEN 84 % (60-150); PROTEIN C - FUNCTIONAL 89 % (73-180)
[2020-04-16 08:00] VITALS: BP 135/75
[2020-04-16 08:03] LABS: ANION GAP 11.6 mmol/L (8-16); CALCIUM 8.9 mg/dL (8.5-10.1); CARBON DIOXIDE 27.2 mmol/L (21.0-32.0); CREATININE - SERUM 1.1 mg/dL (0.6-1.3); POTASSIUM - SERUM 3.8 mmol/L (3.5-5.1); VANCOMYCIN - TROUGH 19.1 ug/mL (10.0-20.0)
[2020-04-16 08:04] LABS: BASOPHILS 0.5 % (0-2); EOSINOPHILS 5.3 % (0-7); HEMATOCRIT 36.8 % (42.0-54.0); HEMOGLOBIN 12.1 g/dL (13.5-17.5); IMMATURE GRANULOCYTES 2.3 % (0-5); LYMPHOCYTES 37.1 % (15-50); MCH 33.3 pg (26.0-34.0); MCHC 32.9 g/dL (31.0-37.0); MCV 101.4 fL (80.0-100.0); MEAN PLATELET VOLUME 9.5 fL (7.4-10.4); MONOCYTES 7.1 % (2-11); NEUTROPHILS 47.7 % (40-80); PLATELET COUNT 317 10x3/uL (130-400); RBC 3.63 10x6/uL (4.20-6.10); WBC 8.4 10x3/uL (4.8-10.8)
[2020-04-16 11:11] LABS: PROTEIN S - FREE 127 % (57-157); PROTEIN S - FUNCTIONAL 113 % (63-140); PROTEIN S - TOTAL 114 % (60-150)
[2020-04-16 12:00] VITALS: BP 105/67
--- NOTE | 2020-04-16 12:26 | MORECARE ---
CASE MANAGEMENT DISCHARGE SUMMARY PATIENT: JOSE WALTERS UNIT: [id number] ADM DATE: 04/09/20 AGE: 74 : 47 SEX: M ROOM/BED: D.2232 AUTHOR: SAM,DOC PHYSICIAN: REFERRING PHYSICIAN: DAYANA ZAIDI MD DATE OF SERVICE: 04/16/20 Discharge Plan Patient Name: JOSE WALTERS Facility: [facility]:[place] : 1945 Planned Disposition: Anticipated Discharge Date: Discharge Date: Expected LOS: Initial Reviewer: [id number] Initial Review Date: 04/13/2020 Generated: 04/16/20 1:26 pm Comments DCP- Discharge Planning Updated by [email or web address]: Pat Serna on 04/16/20 11:[address] Patient Name: JOSE WALTERS Admission Status: ER Accout number: [id number] Admission Date: 04-09-2020 : 1945 Admission Diagnosis:ACUTE EMBOLISM AND THROMBOSIS OF RIGHT FEMORAL VEIN Attending: REINA Current LOS: 7 Anticipated DC Date: Planned Disposition: Primary Insurance: MEDICARE A & B Discharge Planning Comments: SPOKE WITH PATIENT TODAY, HE WOULD BENEFIT FROM [facility]. THIAGO AND IMM SIGNED. ISABELLA ORELLANA WITH [facility] NOTIFIED. CM TO FOLLOW NEEDED. Cheese Specialist: Pat Serna DCP- Discharge Planning Updated by [email or web address]: Pat Serna on 04/13/20 3:[address] Patient Name: JOSE WALTERS Admission Status: ER Accout number: [id number] Admission Date: 04-09-2020 : 1945 Admission Diagnosis: Attending: REINA Current LOS: 4 Anticipated DC Date: Planned Disposition: Primary Insurance: MEDICARE A & B Discharge Planning Comments: CM met with patient at bedside after explaining CM role and obtaining verbal consent. CM discussed availability / needs of home health, REHAB and medical equipment. PATIENT DENIES ANY DISCHARGE NEEDS AT THIS TIME. HAS BEEN GOING TO OUTPATIENT PT AT [facility]. IMM SIGNED AND THIAGO SIGNED FOR [facility] AND HH IF NEEDED. CM TO FOLLOW NEEDED. Cheese Specialist: Pat Serna DCPIA - Discharge Planning Initial Assessment Updated by [email or web address]: Pat Serna on 04/13/20 4:30 pm * Is the patient Alert and Oriented? Yes * PCP ISAEL * Pharmacy [facility] * Preadmission Environment Home with Family * Other Equipment CPAP, WALKER * Community resources currently utilized None * Can the patient safely return to the preadmission environment? Yes * Has this patient been hospitalized within the prior 30 days at any hospital? No Coverage Notice Reviewer: KATHERYN Serna Notice Issued Date-Time: 04/13/2020 16:31 Notice Type: IM Discharge Notice Notice Delivered To: Relationship to Patient: Dinkey Press Operator Name: Delivery Method: - Karyn Days: Prior Verbal Notification: Recipient Understood Notice: Recipient Signature: Med Rec Note Co-signed by Attending: Coverage Notice Comment: Reviewer: KATHERYN Serna Notice Issued Date-Time: 04/13/2020 16:31 Notice Type: Patient Choice Letter Notice Delivered To: Patient Relationship to Patient: Dinkey Press Operator Name: Delivery Method: HAND - Hand Delivered Karyn Days: Prior Verbal Notification: Recipient Understood Notice: Yes Recipient Signature: Yes Med Rec Note Co-signed by Attending: Coverage Notice Comment: GINI JONES [facility] IF NEEDED. Reviewer: KATHERYN Serna Notice Issued Date-Time: 04/16/2020 12:22 Notice Type: IM Discharge Notice Notice Delivered To: Relationship to Patient: Dinkey Press Operator Name: Delivery Method: HAND - Hand Delivered Karyn Days: Prior Verbal Notification: Recipient Understood Notice: Yes Recipient Signature: Yes Med Rec Note Co-signed by Attending: Coverage Notice Comment: Reviewer: KATHERYN Serna Notice Issued Date-Time: 04/16/2020 12:22 Notice Type: Patient Choice Letter Notice Delivered To: Relationship to Patient: Dinkey Press Operator Name: Delivery Method: - Karyn Days: Prior Verbal Notification: Recipient Understood Notice: Recipient Signature: Med Rec Note Co-signed by Attending: Coverage Notice Comment: [facility] Last DP export: 04/13/20 3:35 p Patient Name: JOSE WALTERS Page [id number] at 1226 All edits/amendments must be made on the electronic document DICTATION DATE: 04/16/20 1226 CULINARY ARTIST: FRANCOIS 04/16/20 1226 RPT#: [id number] DC DATE: STATUS: ADM IN [facility] [address] [facility] [place] [address] END OF REPORT
--- NOTE | 2020-04-16 14:13 | NUR ---
Rehab Note- Visited with the patient and his and discussed inpatient acute rehab and provided information. They are in agreeance with [facility] Acute Inpatient Rehab at this time. Thank you for this referral! Brittnee Flower RN Clinical Liaison, [facility] Rehab
--- NOTE | 2020-04-16 14:55 | NUR ---
NUTRITION F/U CHART REVIEWED. PT TOLERATING AHA DIET WITH GOOD PO INTAKE RECENT MEALS. WILL CONTINUE TO PROVIDE DIET, MONITOR PT PROGRESS. RD FOLLOWING
[2020-04-16 15:12] LABS: FACTOR II DNA ANALYSIS Negative (())
[2020-04-16 15:32] VITALS: BP 108/65
[2020-04-16] MEDS ORDERED: Zosyn 3.375 GM/D5W 5 IV (16:00)
[2020-04-16] MEDS ORDERED: Vancomycin 1.25 GM/N IV (16:00)
[2020-04-16] MEDS ORDERED: XOPENEX 1.1.25 MG/3 UPD (16:00)
--- NOTE | 2020-04-16 16:16 | NUR ---
OT NOTE: PT UP TO EOB WITH MIN ASSIST; ABLE TO PERFORM EXS WHILE SITTING UP ON EOB ; ABLE TO PERFORM IN ROOM AMBULATION WITH RW AND MIN ASSIST..NO 02 DURING TMT AND PT SATS REMAINED AT 94-96%...ABLE TO PERFORM TOILET TRANSFER WITH MIN ASSIST. CONT TO RECOMMEND IP REHAB. CRISTIN GAMA, OTR/L [phone]
[2020-04-17 08:13] LABS: HEXAGONAL PHASE PHOS 19 sec (0-11); LUPUS - INTERPRETATION Comment: (()); LUPUS - THROMBIN TIME 24.9 sec (0.0-23.0); LUPUS - dRVVT 77.4 sec (0.0-47.0); LUPUS - dRVVT CONFIRMATION 1.2 ratio (0.8-1.2); PTT-LA 73.9 sec (0.0-51.9); PTT-LA MIX 65.8 sec (0.0-48.9)
--- NOTE | 2020-04-17 10:06 | MORECARE ---
CASE MANAGEMENT DISCHARGE SUMMARY PATIENT: JOSE WALTERS UNIT: [id number] ADM DATE: 04/09/20 AGE: 74 : 47 SEX: M ROOM/BED: D.2232 AUTHOR: SAM,DOC PHYSICIAN: REFERRING PHYSICIAN: DAYANA ZAIDI MD DATE OF SERVICE: 04/17/20 Discharge Plan Patient Name: JOSE WALTERS Facility: [facility]:[place] : 1945 Planned Disposition: Anticipated Discharge Date: Discharge Date: 04/16/2020 Expected LOS: Initial Reviewer: [email or web address] Initial Review Date: 04/13/2020 Generated: 04/17/20 11:06 am DCP- Discharge Planning Updated by [id number]: Pat Serna on 04/16/20 11:[address] Patient Name: JOSE WALTERS Admission Status: ER Accout number: [id number] Admission Date: 04-09-2020 : 1945 Admission Diagnosis:ACUTE EMBOLISM AND THROMBOSIS OF RIGHT FEMORAL VEIN Attending: REINA Current LOS: 7 Anticipated DC Date: Planned Disposition: Primary Insurance: MEDICARE A & B Discharge Planning Comments: SPOKE WITH PATIENT TODAY, HE WOULD BENEFIT FROM COUNTS INCLUDE 234 BEDS AT THE [facility]. THIAGO AND IMM SIGNED. ISABELLA ORELLANA WITH COUNTS INCLUDE 234 BEDS AT THE [facility] NOTIFIED. CM TO FOLLOW NEEDED. Towing Pilot: Pat Serna DCP- Discharge Planning Updated by [id number]: Pat Serna on 04/13/20 3:[address] Patient Name: JOSE WALTERS Admission Status: ER Accout number: [id number] Admission Date: 04-09-2020 : 1945 Admission Diagnosis: Attending: REINA Current LOS: 4 Anticipated DC Date: Planned Disposition: Primary Insurance: MEDICARE A & B Discharge Planning Comments: CM met with patient at bedside after explaining CM role and obtaining verbal consent. CM discussed availability / needs of home health, REHAB and medical equipment. PATIENT DENIES ANY DISCHARGE NEEDS AT THIS TIME. HAS BEEN GOING TO OUTPATIENT PT AT [facility]. IMM SIGNED AND THIAGO SIGNED FOR [facility] AND HH IF NEEDED. CM TO FOLLOW NEEDED. Towing Pilot: Pat Serna DCPIA - Discharge Planning Initial Assessment Updated by [email or web address]: Pat Serna on 04/13/20 4:30 pm * Is the patient Alert and Oriented? Yes * PCP ISAEL * Pharmacy [facility] * Preadmission Environment Home with Family * Other Equipment CPAP, WALKER * Community resources currently utilized None * Can the patient safely return to the preadmission environment? Yes * Has this patient been hospitalized within the prior 30 days at any hospital? No Coverage Notice Reviewer: KATHERYN Serna Notice Issued Date-Time: 04/13/2020 16:31 Notice Type: IM Discharge Notice Notice Delivered To: Relationship to Patient: Gold Charmer Name: Delivery Method: - Karyn Days: Prior Verbal Notification: Recipient Understood Notice: Recipient Signature: Med Rec Note Co-signed by Attending: Coverage Notice Comment: Reviewer: KATHERYN Serna Notice Issued Date-Time: 04/13/2020 16:31 Notice Type: Patient Choice Letter Notice Delivered To: Patient Relationship to Patient: Gold Charmer Name: Delivery Method: HAND - Hand Delivered Karyn Days: Prior Verbal Notification: Recipient Understood Notice: Yes Recipient Signature: Yes Med Rec Note Co-signed by Attending: Coverage Notice Comment: DEIRDRE SANCHEZ OF C[facility] OR [facility] IF NEEDED. Reviewer: KATHERYN Serna Notice Issued Date-Time: 04/16/2020 12:22 Notice Type: IM Discharge Notice Notice Delivered To: Relationship to Patient: Gold Charmer Name: Delivery Method: HAND - Hand Delivered Karyn Days: Prior Verbal Notification: Recipient Understood Notice: Yes Recipient Signature: Yes Med Rec Note Co-signed by Attending: Coverage Notice Comment: Reviewer: KATHERYN Serna Notice Issued Date-Time: 04/16/2020 12:22 Notice Type: Patient Choice Letter Notice Delivered To: Relationship to Patient: Gold Charmer Name: Delivery Method: - Karyn Days: Prior Verbal Notification: Recipient Understood Notice: Recipient Signature: Med Rec Note Co-signed by Attending: Coverage Notice Comment: [facility] Last DP export: 04/16/20 11:26 a Patient Name: JOSE WALTERS Page [phone] at 1006 All edits/amendments must be made on the electronic document DICTATION DATE: 04/17/20 1006 RELAY WORKER: FRANCOIS 04/17/20 1006 RPT#: [id number] DC DATE:04/16/20 STATUS: DIS IN [facility] [address] [place] [address] END OF REPORT
== END 2020-04-16 18:50 | DRG 270 ==
LOC: D.ER 15:21 → D.MS 19:10
PROVIDERS: Emergency Medicine; Internal Medicine Hematology & Oncology; Orthopaedic Surgery; Radiology Diagnostic Radiology; ADMIT Family Medicine; ATTEND Family Medicine
PROC: 047K3ZZ Dilation of Right Femoral Artery, Percutaneous Approach (ICD-10-PCS; 2020-04-10)
PROC: 3E03317 Introduction of Other Thrombolytic into Peripheral Vein, Percutaneous Approach (ICD-10-PCS; 2020-04-10)
PROC: 04CK3ZZ Extirpation of Matter from Right Femoral Artery, Percutaneous Approach (ICD-10-PCS; principal; 2020-04-10 14:50)
DX: I82.421 Acute embolism and thrombosis of right iliac vein (principal); I26.99 Other pulmonary embolism without acute cor pulmonale; E87.1 Hypo-osmolality and hyponatremia; N17.9 Acute kidney failure, unspecified; I50.22 Chronic systolic (congestive) heart failure; D75.89 Other specified diseases of blood and blood-forming organs; E78.5 Hyperlipidemia, unspecified; K21.9 Gastro-esophageal reflux disease without esophagitis; E03.9 Hypothyroidism, unspecified; G47.00 Insomnia, unspecified; I11.0 Hypertensive heart disease with heart failure; R00.0 Tachycardia, unspecified; N40.0 Benign prostatic hyperplasia without lower urinary tract symptoms; J44.9 Chronic obstructive pulmonary disease, unspecified

== ENCOUNTER 2020-04-16 19:00 | Inpatient (IN) | payer MEDICARE, OTHER ==
[~2020-04-16] VITALS: Ht 177.8 cm; Wt 104.3 kg
[~2020-04-16 19:00] MED LIST changes: +OXYCONTIN10 MG PO; +TRAVATAN Z2.5 ML EACH EYE; +Vancomycin 1.25 GM/N IV; +XOPENEX 1.1.25 MG/3 UPD; +Zosyn 3.375 GM/D5W 5 IV
[2020-04-17 02:27] VITALS: BP 133/96; BMI 33.0
--- NOTE | 2020-04-17 05:22 | NUR ---
PT RAC SL INFILTRATED, REMOVED TIP INTACT, NEW SL IN LFA, PATENT DRS C/D/I
[2020-04-17 06:58] LABS: BASOPHILS 0.4 % (0-2); EOSINOPHILS 5.5 % (0-7); HEMATOCRIT 37.3 % (42.0-54.0); HEMOGLOBIN 11.9 g/dL (13.5-17.5); IMMATURE GRANULOCYTES 2.4 % (0-5); LYMPHOCYTES 24.7 % (15-50); MCH 32.7 pg (26.0-34.0); MCHC 31.9 g/dL (31.0-37.0); MCV 102.5 fL (80.0-100.0); MEAN PLATELET VOLUME 9.2 fL (7.4-10.4); MONOCYTES 8.8 % (2-11); NEUTROPHILS 58.2 % (40-80); PLATELET COUNT 325 10x3/uL (130-400); RBC 3.64 10x6/uL (4.20-6.10); RDW 13.2 % (11.5-14.5); WBC 7.9 10x3/uL (4.8-10.8)
[2020-04-17 07:36] LABS: CALC OSMOLALITY 280 mosm/kg (275-300); CALCIUM 8.9 mg/dL (8.5-10.1); CARBON DIOXIDE 27.1 mmol/L (21.0-32.0); CHLORIDE - SERUM 104 mmol/L (98-107); GLUCOSE 142 mg/dL (74-106); POTASSIUM - SERUM 3.8 mmol/L (3.5-5.1); SODIUM 139 mmol/L (136-145); UREA NITROGEN 14 mg/dL (7-18); eGFR NON AFRICAN AMERICAN 78 mL/min (90-120)
[2020-04-17 07:54] VITALS: BP 131/67
--- NOTE | 2020-04-17 11:21 | NUR ---
PATIENT ADMITTED TO REHAB FROM ACUTE FLOOR. HIS PCP IS DR. KIRKLAND, HE GOES TO OUTPATIENT THERAPY AT [facility]. DME AT HOME IS A WALKER AND A CPAP. DISCHARGE PLANS ARE FOR PATIENT TO RETURN TO HIS HOME WITH FAMILY. WILL CONTINUE TO FOLLOW WITH PATIENT.
[2020-04-17 12:33] VITALS: Ht 177.8 cm; Wt 104.3 kg
--- NOTE | 2020-04-17 16:30 | NUR ---
LAYING IN BED RESTING QUIETLY. DENIES NEEDS OR PAIN. NO S/S INFECTION TO RT KNEE. IT IS OPEN TO AIR WITH STERI STRIPS COVERING INCISION.
[2020-04-17 20:00] VITALS: BP 139/71
--- NOTE | 2020-04-17 20:00 | NUR ---
PATIENT RECEIVED SITTING UP IN BED. ASSESSMENT & VITAL SIGNS DONE. PATIENT IV ANTIBIOTIC ONGOING. NO C/O PAIN OR DISTRESS. BED LOW. CALL LIGHT WITHIN REACH. WILL CONTINUE TO MONITOR.
--- NOTE | 2020-04-18 01:30 | NUR ---
PATIENT EYES CLOSED. RESPIRATIONS 18 & EVEN. BED LOW. ALARM ON. CALL LIGHT & URINAL WITHIN REACH. WILL CONTINUE TO MONITOR.
--- NOTE | 2020-04-18 02:05 | NUR ---
I have reviewed this patient and I concur with the Shift Assessment completed by the Licensed Practical Nurse today this shift.
--- NOTE | 2020-04-18 05:52 | NUR ---
PATIENT GIVEN MEDICATIONS. PATIENT MINIMAL TRANSFER INTO WHEELCHAIR. PATIENT SELF TRANSFER ONTO TOILET. VOID & SMALL BM. PATENT RETURNED TO BED MINIMAL ASSIST. BED LOW. ALARM ON. CALL LIGHT WITHIN REACH. WILL CONTINUE TO MONITOR.
[2020-04-18 08:00] VITALS: BP 128/69
--- NOTE | 2020-04-18 11:53 | NUR ---
LAYING IN BED RESTING QUIETLY. HAS BEEN UP WITH THERAPY THIS MORNING AND HAS SHOWERED. RT KNEE HAS STERI STRIPS ON INCISION AND IS PINK SLIGHTLY AROUND INCISION BUT NO ODOR OR DRAINAGE NOTED. C/O PAIN TO RT KNEE. PAIN MEDS GIVEN ORDERED.
--- NOTE | 2020-04-18 17:11 | NUR ---
RESTING QUIETLY IN BED WITH EYES CLOSED. NO S/S DISTRESS. CALL LIGHT IN REACH
--- NOTE | 2020-04-18 17:21 | NUR ---
SITTING UP IN BED EATING SUPPER. IN ROOM WITH PT. HE ASKS FOR PAIN MEDS EVERY 6 HRS. CALL LIGHT IN REACH
--- NOTE | 2020-04-18 20:00 | NUR ---
PATIENT RECEIVED SITTING UP IN BED. ASSESSMENT & VITAL SIGNS DONE. RIGHT KNEE EDEMA 3+ REDNESS NOTED, WARM. BED LOW. ALARM ON. CALL LIGHT WITHIN REACH. WILL CONTINUE TO MONITOR.
[2020-04-18 20:18] VITALS: BP 141/67
--- NOTE | 2020-04-18 22:25 | NUR ---
PATIENT USED CALL LIGHT FOR ASSIST INTO & OUT OF WHEECHAIR. MINIMAL ASSIST. PATIENT HAD 200 CC O YELLOW COLOR URINE IN URINAL. SOFT BM. PATIENT C/O PAIN TO RIGHT KNEE. PAIN MEDICATION GIVEN PER ORDER FOR PAIN LEVEL OF 5. PATIENT RETURNED TO LOW BED. CALL LIGHT WITHIN REACH. PATIENT CPAP ON. WILL CONTINUE TO MONITOR.
--- NOTE | 2020-04-19 02:09 | NUR ---
I have reviewed this patient and I concur with the Shift Assessment completed by the Licensed Practical Nurse today this shift.
--- NOTE | 2020-04-19 02:24 | NUR ---
PATIENT EYES CLOSED. CPAP CONTINUES. ALARM ON. BED LOW. CALL LIGHT WITHIN REACH. WILL CONTINUE TO MONITOR.
[2020-04-19 08:00] VITALS: BP 128/81
--- NOTE | 2020-04-19 17:18 | NUR ---
LAYING IN BED QUIETLY. IS VISITING. RT KNEE IS SWOLLEN AND RED AROUND EDGES OF INCISION. HE ASKS FOR PAIN MEDS EVERY 6 HRS. HE HAS BEEN UP WITH WALKER AND WC AND WENT TO BATHROOM. CALL LIGHT IN REACH
[2020-04-19 19:46] VITALS: BP 137/81
--- NOTE | 2020-04-19 20:00 | NUR ---
PATIENT RECEIVED SITTING UP IN BED WATCHING TV. ASSESSMENT & VITAL SIGNS DONE. ASSIST INTO & OUT OF WHEELCHAIR. PATIENT TOILETED. VOID & LOOSE STOOL. PATIENT RETURNED TO LOW BED. CALL LIGHT WITHIN REACH. WILL CONTINUE TO MONITOR.
--- NOTE | 2020-04-19 22:03 | NUR ---
2100 MEDICATIONS SKIN CREME, RESTORIL, EYE DROPS GIVEN LATE PER PATIENT. PATIENT WANTED THESE MEDICATIONS AFTER HIS SHOWER. LINENS CHANGED. PATIENT RETURNED TO BED. CALL LIGHT WITHIN REACH. WILL CONTINUE TO MONITOR.
--- NOTE | 2020-04-19 23:15 | NUR ---
PATIENT UPDRAFT OVER. PATIENT ASSIST INTO WHEELCHAIR. PATIENT WENT INTO SHOWER BEHIND CURTAIN. UNDRESSED & USED WASH CLOTHES & TOWELS PROVIDED. PATIENT CLOTHES & EXTRA TOWELS PLACED IN WHEECHAIR BESIDE CURTAIN. PATIENT USED CALL LIGHT WHEN HE RETURNED TO BED. PATIENT GIVEN REMAINING NIGHT MEDICATIONS PER HIS REQUEST. BED LOW. CALL LIGHT & URINAL WITHIN REACH. WILL CONTINUE TO MONITOR.
--- NOTE | 2020-04-20 03:25 | NUR ---
I have reviewed this patient and I concur with the Shift Assessment completed by the Licensed Practical Nurse today this shift.
[2020-04-20 08:01] LABS: BASOPHILS 0.4 % (0-2); EOSINOPHILS 4.5 % (0-7); HEMATOCRIT 38.2 % (42.0-54.0); HEMOGLOBIN 12.4 g/dL (13.5-17.5); IMMATURE GRANULOCYTES 1.1 % (0-5); LYMPHOCYTES 27.2 % (15-50); MCH 33.2 pg (26.0-34.0); MCHC 32.5 g/dL (31.0-37.0); MCV 102.1 fL (80.0-100.0); MEAN PLATELET VOLUME 9.7 fL (7.4-10.4); MONOCYTES 10.5 % (2-11); NEUTROPHILS 56.3 % (40-80); PLATELET COUNT 331 10x3/uL (130-400); RBC 3.74 10x6/uL (4.20-6.10); RDW 13.1 % (11.5-14.5); WBC 8.2 10x3/uL (4.8-10.8)
[2020-04-20 08:03] LABS: ANION GAP 13.8 mmol/L (8-16); CALCIUM 9.1 mg/dL (8.5-10.1); CARBON DIOXIDE 25.1 mmol/L (21.0-32.0); CREATININE - SERUM 1.1 mg/dL (0.6-1.3); POTASSIUM - SERUM 3.9 mmol/L (3.5-5.1)
[2020-04-20 08:13] VITALS: BP 124/73
--- NOTE | 2020-04-20 08:20 | NUR ---
ALERT, EATING BREAKFAST. NO DISTRESS NOTED.
--- NOTE | 2020-04-20 12:36 | NUR ---
FAMILY AT BS. NO C/O PAIN. EATING LUNCH. CL IN REACH.
--- NOTE | 2020-04-20 17:50 | NUR ---
NO CHANGE IN ASSESSMENT. EATING DINNER. NO DISTRESS NOTED. CL IN REACH. FMAILY AT BS.
[2020-04-20 20:10] VITALS: BP 123/64
--- NOTE | 2020-04-20 20:10 | NUR ---
ASSESSMENT PER FLOW SHEET, VS OBTAINED, SALINE LOCK TO LEFT FA INTACT, PT REPORTS FLATUS, LOOSE STOOL TODAY, AND USING URINAL WITH NO DIFFICULTY, PT DENIES NEEDS OR PAIN AT THIS TIME, FALL PRECAUTIONS IN PLACE
--- NOTE | 2020-04-20 21:51 | NUR ---
PT AWAKE, CPAP ON AT THIS TIME, PT REMOVED, ADM 2100 MEDS PER MD ORDERS, SEE EMAR, WITH FRESH H20, DENIES NEEDS AT THIS TIME, FALL PRECAUTIONS IN PLACE
--- NOTE | 2020-04-20 22:33 | NUR ---
PT RESTING WITH EYES CLOSED, RESP QUIET, NO DISTRESS NOTED, LEFT UNDISTURBED AT THIS TIME, FALL PRECAUTIONS IN PLACE
--- NOTE | 2020-04-20 23:46 | NUR ---
ADM PAIN MED PO PER MD ORDERS, SEE EMAR, PT DENIES FURTHER NEEDS, FALL PRECAUTIONS IN PLACE
--- NOTE | 2020-04-20 23:46 | NUR ---
LATE ENTRY: EMPTIED 250 MLS OF LIGHT YELLOW URINE FROM URINAL
--- NOTE | 2020-04-21 00:30 | NUR ---
PT RESTING WITH EYES CLOSED, RESP QUIET, NO DISTRESS NOTED, LEFT UNDISTURBED AT THIS TIME, FALL PRECAUTIONS IN PLACE
--- NOTE | 2020-04-21 02:45 | NUR ---
PT RESTING WITH EYES CLOSED, RESP QUIET, NO DISTRESS NOTED, LEFT UNDISTURBED AT THIS TIME, FALL PRECAUTIONS IN PLACE
--- NOTE | 2020-04-21 04:30 | NUR ---
PT RESTING WITH EYES CLOSED, RESP QUIET, NO DISTRESS NOTED, LEFT UNDISTURBED AT THIS TIME, FALL PRECAUTIONS IN PLACE
--- NOTE | 2020-04-21 05:29 | NUR ---
PT AWAKE, ADM 0600 MED PER MD ORDERS, REQUESTS PAIN MED WHEN DUE, INFORMED PT THAT I WILL BRING IT IN WHEN IT IS DUE, PT VERBALIZES UNDERSTANDING, DENIES FURTHER NEEDS, FRESH H20 SERVED
--- NOTE | 2020-04-21 07:30 | NUR ---
AWAKE.DENIES NEEDS.ASSESSMENT COMPLETED.RT KNEE INCISION HEALING WELL BUT SWELLING PRESENT TO KNEE.WILL CONTINUE WITH CURRENT PLAN OF CARE.CL IN EASY REACH,BED IN LOW POSITION.
[2020-04-21 08:00] VITALS: BP 115/71
[2020-04-21 19:26] VITALS: BP 111/66
--- NOTE | 2020-04-21 19:47 | NUR ---
RECIEVED LAYING IN BED WITH EYES CLOSED AND BIPAP IN PLACE. EASILY AROUSES WITH VERBAL STIMULI. REQUIRES SVA WITH TOILETING TRANSFERS. STERI STRIPS TO RT KNEE. SWELLING TO AREA AND NO RESNESS. DENIES ANY NEEDS AT THIS TIME.
[2020-04-22 08:05] LABS: BASOPHILS 0.6 % (0-2); EOSINOPHILS 3.8 % (0-7); HEMATOCRIT 36.8 % (42.0-54.0); HEMOGLOBIN 11.9 g/dL (13.5-17.5); IMMATURE GRANULOCYTES 0.6 % (0-5); LYMPHOCYTES 29.7 % (15-50); MCH 32.8 pg (26.0-34.0); MCHC 32.3 g/dL (31.0-37.0); MCV 101.4 fL (80.0-100.0); MEAN PLATELET VOLUME 9.5 fL (7.4-10.4); MONOCYTES 9.5 % (2-11); NEUTROPHILS 55.8 % (40-80); PLATELET COUNT 346 10x3/uL (130-400); RBC 3.63 10x6/uL (4.20-6.10); RDW 12.9 % (11.5-14.5); WBC 6.9 10x3/uL (4.8-10.8)
[2020-04-22 08:16] LABS: ANION GAP 11.5 mmol/L (8-16); CALCIUM 8.8 mg/dL (8.5-10.1); CARBON DIOXIDE 25.1 mmol/L (21.0-32.0); CREATININE - SERUM 1.1 mg/dL (0.6-1.3); POTASSIUM - SERUM 3.6 mmol/L (3.5-5.1)
[2020-04-22 08:27] VITALS: BP 124/68
--- NOTE | 2020-04-22 10:56 | NUR ---
LAYING IN BED IN ROOM. RT FOREARM IS WARM, RED AND SWOLLEN. RT KNEE IS RED, WARM AND SWOLLEN. FROM KNEE TO TOES ON RLE HE HAS 3+ EDEMA. PEDAL PULSES PRESENT X2.
[2020-04-22] MEDS ORDERED: ELIQUIS5 MG PO (12:39)
--- NOTE | 2020-04-22 12:43 | RHP ---
PATIENT: JOSE WALTERS MEDICAL RECORD: [id number] ACCOUNT: [id number] LOCATION:[facility]11[facility] : [birth year] ADMISSION DATE: 04/16/20 REHABILITATION HISTORY AND PHYSICAL EXAMINATION POST ADMISSION PHYSICIAN EXAMINATION ADMITTING DIAGNOSIS: Disuse myopathy. HISTORY OF PRESENT ILLNESS: The patient is a 74-year-old gentleman that was admitted to acute hospital and found to have bilateral pulmonary emboli. He presented to his link cutter's office with increasing shortness of breath, was sent for a CTA of the chest on 04/09 with finding of pulmonary embolus in the left pulmonary artery extending into the branches of the lingula, left upper and left lower lobes. He had a nonocclusive thrombus within the branches of the right lower lobe of the lung. He had a recent right total knee on March 17, was doing okay in outpatient therapy. He got short of breath with ambulation. The patient had an ultrasound, which showed an extensive DVT in the right lower extremity extending to the common femoral, superficial femoral, popliteal and posterior tibial veins. The patient has been followed closely by oncology and hematology during his acute stay with anticoagulation recommended. He has been participating in physical and occupational therapy during her stay also, been progressing slowly with them. He is also on telemetry, we are monitoring for his right knee surgical incision for healing of this area. He has had some complications to his right lower extremity. He is on supplemental O2. We are monitoring for pain control, I's and O's, medication adjustments. The patient has proximal muscle weakness, balance deficits, decreased activity tolerance, impaired mobility, limited safety awareness. He has got unsteady gait and balance. He fatigues easily, got inability to care for himself. He has had 2 surgeries on his left knee this year secondary to complications of the original partial knee replacement that he had several years ago secondary to loose prosthesis. He is currently set up for max assist for ADLs and min-to-mod assist for mobility with use of rolling walker and supplemental O2. His and he would like for him to return back to his prior level of functioning and be able to return home. COMORBIDITIES: In this patient include weakness, bilateral pulmonary emboli. He has got history of COPD, sleep apnea. He has had a history of tobacco use. He has got hypothyroidism, insomnia, BPH, dyspnea on exertion, hyponatremia, macrocytic anemia, and hypothyroidism. PAST MEDICAL HISTORY: Significant for neuropathy, he has got a history of sinus problems, tinnitus, hyperlipidemia, skin cancers, arthritis, BPH, prostate problems, low testosterone levels, insomnia, history of tobacco use. PAST SURGICAL HISTORY: Includes lumbar laminectomy, left frontal sinus irrigations, skin cancer removal, partial knee replacement. ALLERGIES: BACLOFEN, TUBERCULIN TOXIN AND PPD. CURRENT MEDICATIONS: Include Flonase nasal spray, Xopenex updrafts as needed, vancomycin 1.25 grams every 12 hours, Xalatan eye drops 1 drop at bedtime, temazepam 60 mg at bedtime, simvastatin 20 mg at bedtime, ammonium lactate to apply b.i.d., Zosyn 3.375 grams every 6 hours, OxyIR 10 mg every 6 hours p.r.n. and multivitamin daily. HISTORY AND PHYSICAL [id number] JOSE WALTERS HABITS: Does have a distant history of tobacco use. FAMILY HISTORY: Noncontributory. SOCIAL HISTORY: The patient hopes to return back home and get back to his prior level of functioning. REVIEW OF SYSTEMS: GENERAL: Does complain of weakness and fatigue. HEENT: Denies cold, cough, or congestion. CARDIOVASCULAR: Denies any chest pain. PHYSICAL EXAMINATION: VITAL SIGNS: Stable, afebrile. GENERAL: A somewhat obese gentleman in no acute distress upon exam. HEENT: Normocephalic and atraumatic. Mucosa moist. NECK: Supple. No lymphadenopathy. LUNGS: Clear in upper rankin with no wheezing, rhonchi or rales. HEART: Regular rate and rhythm. No murmurs, rubs or gallops. ABDOMEN: Soft, benign and nondistended. Positive bowel sounds times 4. EXTREMITIES: No clubbing, cyanosis or edema. Does have postop swelling, which appears within normal limits. NEUROLOGIC: Does have proximal muscle weakness and also some weakness in his upper extremities. LABORATORY DATA: His white count is 7.9, H&H of 11.9 and 37.5 and platelet count was noted to be 325, MCV is 102.5. Sodium 139, potassium 3.8, BUN and creatinine of 14 and 1.0 and blood sugar is noted to be 142. 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 The patient has potential to make improvement. We instituted the following multidisciplinary therapies including, but not limited to physical, occupational, respiratory, speech, nutritional services, prosthetics and orthotics. Given his complex medical condition and risks for more complications, rehabilitation services cannot be provided at a low level of care such a residential facility. PLAN: 1. Admit to [facility] for inpatient therapy to include the following disciplines; A. Physical therapy to improve gait, all transfer skills and bed mobility to a modified independent level. B. Occupational therapy to improve activities of daily living. C. Case management to help with discharge planning and placement options. D. Nutrition to assist with nutritional needs. E. Rehabilitation nursing to assist in monitoring the patient's underlying medical conditions and to assist with any type of bowel or bladder management. 2. The patient's current medication and medical care will be continued. 3. The patient will be placed on standard fall precautions. 4. The patient's estimated length of stay is approximately 7-10 days. 5. We will discuss this patient during care team staff meeting this week. We will continue on home medications where appropriate. We will watch for any signs of problems and I will see again in the a.m. HISTORY AND PHYSICAL [id number] JOSE WALTERS TRANSINT:[id number] Voice Confirmation ID: [id number] DOCUMENT ID: [id number] NIA notes whether there has been none or any medical/functional change since admission: - No change since prescreen. NIA attests patient continues to be appropriate for IRF: - Continues to be appropriate. GUI SHIPMAN MD at 1243 CC: [id number] DICTATION DATE: 04/17/20 0802 REHABILITATION SERVICES COUNSELOR: 04/17/20 1336 ADM IN [facility] [address] [place] [address]
[2020-04-22 19:06] VITALS: BP 117/85
--- NOTE | 2020-04-22 19:31 | NUR ---
RECIEVED UP IN BED WITH EYES OPEN AND TV ON. ALAERT AND ORIENTED X4. REQUIRES SBA AND W/C TO GO TO B/R. ARANZAI STIPS TO RT KNEE AND SOME SWELLING TO AREA. WEARS BIPAP AT HS. DENIES ANY NEEDS AT THIS TIME.
[2020-04-23 08:00] VITALS: BP 127/63
--- NOTE | 2020-04-23 10:49 | NUR ---
RESTING QUIETLY IN BED. DENIES NEEDS OR C/O. STILL ASKS FOR PAIN MEDS Q6 HRS. CALL LIGHT IN REACH
--- NOTE | 2020-04-23 14:03 | NUR ---
NUTRITION FOLLOW UP: COMMENTS: Patient has been eating well for last 9 meals. No new recent weight changes within the past 2 weeks. DIET: PO INTAKE: 80% avg for last 9 meals WEIGHT: 230 lbs on 04/14; 230 lbs on 04/17 BM: x 3 on 04/20 SIG LABS: No new sig labs SIG MEDS: Nystatin, Imodium, Protonix, Zocor, MVI RECOMMENDATIONS: -Continue current diet as tolerated RD to continue to follow and monitor patient DHS
--- NOTE | 2020-04-23 14:41 | NUR ---
PATIENT DISCHARGING HOME TODAY WITH FAMILY.NO NEW DME NEEDED AT THIS TIME.PATIENT REQUESTING TO CONTINUE WITH HIS OUTPATIENT THERAPY WITH [facility]. DR. KIRKLAND/CHASIDY 04/30/20 @ 9:00. PATIENT HAS PENDING APPOINTMENT WITH HIS PHYSICIAN IN [place]. THIAGO SINGED, IMM SERVED AND EXPLAINED, ONE GIVEN TO PATIENT AND ONE FILED IN CHART. D/C INSTRUCTIONS FAXED TO PCP AND REVIEWED WITH PATIENT PER BOBBY GREEN.
== END 2020-04-23 11:00 | disposition home or self-care (01) | DRG 91 ==
LOC: D.REHAB 19:00
PROVIDERS: ADMIT Emergency Medicine; ATTEND Emergency Medicine
DX: G72.89 Other specified myopathies (principal); I26.99 Other pulmonary embolism without acute cor pulmonale; A41.9 Sepsis, unspecified organism; J96.01 Acute respiratory failure with hypoxia; I50.22 Chronic systolic (congestive) heart failure; I82.409 Acute embolism and thrombosis of unspecified deep veins of unspecified lower extremity; E87.1 Hypo-osmolality and hyponatremia; N17.9 Acute kidney failure, unspecified; R53.1 Weakness; J44.9 Chronic obstructive pulmonary disease, unspecified; G47.30 Sleep apnea, unspecified; Z72.0 Tobacco use; E03.9 Hypothyroidism, unspecified; G47.00 Insomnia, unspecified; N40.0 Benign prostatic hyperplasia without lower urinary tract symptoms; D53.9 Nutritional anemia, unspecified; I11.0 Hypertensive heart disease with heart failure; K21.9 Gastro-esophageal reflux disease without esophagitis; E78.5 Hyperlipidemia, unspecified; R05 Cough; E87.6 Hypokalemia